=== PATIENT | male | born 1980 | race Caucasian/White ===

== ENCOUNTER 2022-12-10 02:58 | Emergency (ER) | payer MEDICAID ==
[~2022-12-10] VITALS: Ht 170.2 cm; Wt 79.4 kg
[2022-12-10 03:10] VITALS: BP_SYST 133
[2022-12-10] MEDS ORDERED: methylPREDNISolone SOD SUCC/PF 62.5 MG/ML VIAL IM ONE (03:15)
[2022-12-10] MEDS ORDERED: DIPHENHYDRAMINE INJ 50 MG/ML VIAL IM ONE (03:15)
--- NOTE | 2022-12-10 03:30 | NUR ---
Patient triaged and placed in waiting room. VSS and patient appears in no acute distress at this time. Accompanied by sig other. MD Boyd notified of need for MSE.
--- NOTE | 2022-12-10 03:32 | NUR ---
Placed in room 05. Placed on whiting can worker, blood pressure machine and pulse oximeter. To gown for exam. Side rails up. Report given to DARRIUS Abbasi.
[2022-12-10 05:05] VITALS: BP_SYST 130
[2022-12-10] MEDS ORDERED: BEN50 PO (05:16)
--- NOTE | 2022-12-10 05:20 | NUR ---
Patient given written and verbal discharge instructions and verbalizes understanding. ER MD discussed with patient the results and treatment provided. Patient in stable condition. ID arm band removed. Rx of Benadryl given. Patient educated on pain management and to follow up with PMD. Opportunity for questions provided and answered.
== END 2022-12-10 05:20 | disposition home or self-care (01) ==
LOC: SED 02:58
DX: T78.40XA Allergy, unspecified, initial encounter (principal); R21 Rash and other nonspecific skin eruption; Z79.899 Other long term (current) drug therapy; X58.XXXA Exposure to other specified factors, initial encounter
CPT/HCPCS: 99284; 96372; J1200; J2930